=== PATIENT | female | born 1985 | race Caucasian/White ===

== ENCOUNTER 2020-05-10 11:40 | Emergency (ER) | payer SELFPAY ==
[2020-05-10 11:49] VITALS: BP 140/67; PULSE 89; RESP 18; TEMP 37.8; O2SAT 100; BMI 32.5
--- NOTE | 2020-05-10 12:21 | ED_ITS ---
HPI - URI/Sore Throat General Chief Complaint: Upper Respiratory Symptoms Stated Complaint: SORE THROAT Time Seen by Provider: 05/10/20 12:07 Source: patient Mode of arrival: ambulatory Limitations: no limitations History of Present Illness HPI Narrative: 35 y/o healthy female presenting with fatigue for the last 3 days with acute onset of dry cough, mild sore throat and body aches that started yesterday. She states she was up all night with a dry, annoying cough despite taking cough medication. She does not have any sputum, SOB or difficulty breathing. No chest pain. No fevers at home. No known exposure to COVID-19 but she works at [employer]. Has not gotten her flu shot this year. MD elicited complaint: cough and sore throat Onset (ago): day(s) (1) Consistency: constant Severity: moderate Able to tolerate fluids by mouth: Yes Exacerbating factors: nothing Relieving factors: nothing Related Data Previous Rx's Medication Instructions Recorded albuterol sulfate 1 inh INHALATION QID PRN #6.7 g NS 05/10/20 albuterol sulfate 2 puff INHALATION Q4-6H PRN #6.7 g 05/10/20 hydrocodone-homatropine 5 ml PO Q4-6H PRN #473 ml 05/10/20 Allergies Allergy/AdvReac Type Severity Reaction Status Date / Time Sulfa (Sulfonamide Allergy Rash Verified 05/10/20 11:41 Antibiotics) Review of Systems Review of Systems: Constitutional: No Fever, + Chills ENT/Mouth: + sore throat, No Rhinorrhea, No Swallowing Difficulty Eyes: No Eye Pain, No Swelling, No Redness Cardiovascular: No Chest Pain, No SOB, No Orthopnea, No Edema Respiratory: + Cough, No Sputum, No Wheezing, No dyspnea Gastrointestinal: + Nausea, No Vomiting, No Diarrhea, No abdominal Pain Genitourinary: No Dysuria, No Urinary Frequency, No Hematuria Musculoskeletal: No joint pain, + Myalgias Skin: No Skin Lesions, No rash Neuro: No Weakness, No Dizziness, + Headache PMFSH Past Medical History Attestation statement: The following information was validated with the patient. Medical History (Updated 05/10/20 @ 13:00 by TWAN Kwan) No known health problems Social History Social History Advance Directives: No Advance Directives Information Provided: Yes Physical Exam Vital Signs: Vital Signs: Last Vital Signs Temp 100.1 F 05/10/20 11:49 Pulse 89 05/10/20 11:49 Resp 18 05/10/20 11:49 BP 140/67 H 05/10/20 11:49 Pulse Ox 100 05/10/20 11:49 Body Mass Index 32.5 Appearance: Alert. Oriented X3. No acute distress. HEENT: mild pharyngeal erythema, no tonsillar swelling or exudate CVS: Normal heart rate and rhythm. Pulses normal. Respiratory: No respiratory distress. Lung sounds are clear. Skin: Skin warm and dry. Normal skin color. Normal skin turgor. No rashes. Neuro: Oriented X 3. Course Course Course Narrative: 35 y/o here with dry cough, chills, myalgias. Concern for COVID. Non-toxic appearing and VSS, lungs clear. COVID swab sent. Symptomatic rickie rangel discussed. Stable for discharge. Discharge Plan Discharge Clinical Impression: Upper respiratory infection Qualifiers: URI type: unspecified viral URI Qualified Code(s): J06.9 - Acute upper respiratory infection, unspecified Patient Disposition: Home, Self-Care Instructions: Viral Syndrome (ED), COVID-19 (Coronavirus Disease 2019) (ED) Additional Instructions: You were tested for COVID-19, Influenza A/B and RSV today. We will call you with the results this afternoon. If you develop shortness of breath, difficulty breathing or chest pain call 911 or come back to the ER for further evaluation. Do not work while you are feeling sick. Continue taking over the counter cold/flu medications for your symptoms. Follow up with your Primary Care doctor this week. Prescriptions: New albuterol sulfate 90 mcg/actuation HFA aerosol inhaler 1 inh inhalation QID PRN (Reason: shortness of breath or wheezing) Qty: 6.7 RF: 0 hydrocodone-homatropine 5-1.5 mg/5 mL syrup 5 ml PO Q4-6H PRN (Reason: cough) Qty: 473 RF: 0 albuterol sulfate 90 mcg/actuation HFA aerosol inhaler 2 puff inhalation Q4-6H PRN (Reason: shortness of breath or wheezing) Qty: 6.7 RF: 0 Stand Alone Forms: Work/School Release Interventions: ED Discharge Assessment Last Done: 05/10/20 13:22 Discharge Date/Time: 05/10/20 13:22
== END 2020-05-10 13:22 | disposition home or self-care (01) ==
PROVIDERS: Physician Assistant; Emergency Provider Emergency Medicine
DX: J06.9 Acute upper respiratory infection, unspecified (principal); R05 Cough; Z79.899 Other long term (current) drug therapy; Z20.828 Contact with and (suspected) exposure to other viral communicable diseases
CPT/HCPCS: 99283; U0003

== ENCOUNTER 2021-03-31 15:10 | Outpatient (REF) | payer MEDICAID, SELFPAY | END 2021-03-31 15:11 | disposition home or self-care (01) | LOC: HO.MANLNP 15:10 | PROVIDERS: PCP Physician Assistant; Visit Provider Physician Assistant | DX: R30.9 Painful micturition, unspecified (principal) | CPT/HCPCS: 87086; 87088; 87186 ==